=== PATIENT | female | born 1990 ===

== ENCOUNTER 2017-08-26 00:02 | Inpatient (IN) | payer BC ==
[2017-08-26] MEDS ORDERED: Ondansetron 4 MG/2 ML SDV IVPUSH PRN ×2 (00:23→00:59)
[2017-08-26] MEDS ORDERED: Sodium Chloride 0.9% 10 ML Syringe FLUSH PRN (00:23)
[2017-08-26] MEDS ORDERED: Nalbuphine 20 MG/1 ML Amp IVPUSH PRN (00:23)
[2017-08-26] MEDS ORDERED: Oxytocin/Lactated Ringers 10 UNIT/1,000 ML BAG IV SCH ×2 (00:30)
[2017-08-26] MEDS: Lactated Ringers 1,000 ML IV SCH ×2 (00:30→02:15)
[2017-08-26] MEDS ORDERED: ePHEDrine 50 MG/ML SDV IVPUSH PRN (00:59)
[2017-08-26] MEDS ORDERED: fentaNYL 100 MCG/2 ML SDV EPIDUR PRN (00:59)
[2017-08-26] MEDS ORDERED: Bupivacaine/fentaNYL/NS 100 ML Bag EPIDUR SCH (01:00)
--- NOTE | 2017-08-26 01:02 | PCM.PREANE ---
Preanesthetic Assessment - Anesthesia/Transfusion/Family Hx Anesthesia History: Prior Anesthesia Without Reaction Family History of Anesthesia Reaction: No Transfusion History: No Prior Transfusion(s) Intubation History: Unknown - Review of Systems General: No Symptoms Pulmonary: No Symptoms Cardiovascular: No Symptoms Gastrointestinal: No Symptoms Neurological: No Symptoms - Physical Assessment NPO Status Date: 08/25/17 NPO Status Time: 18:00 Pulse: 91 O2 Sat by Pulse Oximetry: 99 Respiratory Rate: 18 Blood Pressure: 138/86 Temperature: 37.1 C Height: 1.7 m Weight: 79.832 kg ASA Class: 2 Mental Status: Alert & Oriented x3 Airway Class: Mallampati = 2 Dentition: Reports: Normal Dentition, Caries Thyro-Mental Finger Breadths: 3 Mouth Opening Finger Breadths: 3 ROM/Head Extension: Full Lungs: Clear to Auscultation, Normal Respiratory Effort Cardiovascular: Regular Rate, Regular Rhythm, No Murmurs - Lab Values: Laboratory Last Values WBC 15.22 K/mm3 (3.98-10.04) H 08/26/17 00:23 RBC 4.03 M/mm3 (3.98-5.22) 08/26/17 00:23 Hgb 11.2 gm/L (11.2-15.7) 08/26/17 00:23 Hct 34.3 % (34.1-44.9) 08/26/17 00:23 MCV 85.1 fl (79.4-94.8) 08/26/17 00:23 MCH 27.8 pg (25.6-32.2) 08/26/17 00:23 MCHC 32.7 g/dl (32.2-35.5) 08/26/17 00:23 RDW Std Deviation 43.1 fL (36.4-46.3) 08/26/17 00:23 Plt Count 254 K/mm3 (182-369) 08/26/17 00:23 MPV 8.8 fl (9.4-12.3) L 08/26/17 00:23 Neut % (Auto) 71.7 % (34.0-71.1) H 08/26/17 00:23 Lymph % (Auto) 17.1 % (19.3-51.7) L 08/26/17 00:23 [place] % (Auto) 9.4 % (4.7-12.5) 08/26/17 00:23 Eos % (Auto) 1.1 (0.7-5.8) 08/26/17 00:23 Baso % (Auto) 0.3 % (0.1-1.2) 08/26/17 00:23 Neut # (Auto) 10.92 K/mm3 (1.56-6.13) H 08/26/17 00:23 Lymph # (Auto) 2.60 K/mm3 (1.18-3.74) 08/26/17 00:23 [place] # (Auto) 1.43 K/mm3 (0.24-0.36) H 08/26/17 00:23 Eos # (Auto) 0.17 K/mm3 (0.04-0.36) 08/26/17 00:23 Baso # (Auto) 0.04 K/mm3 (0.01-0.08) 08/26/17 00:23 Above labs reviewed and noted and within acceptable ranges to proceed with epidural. - Allergies Allergies/Adverse Reactions: Allergies Allergy/AdvReac Type Severity Reaction Status Date / Time No Known Allergies Allergy Verified 08/26/17 00:22 - Anesthesia Plan Pre-Op Medication Ordered: None - Acknowledgements Anesthesia Type Planned: Epidural Pt an Appropriate Candidate for the Planned Anesthesia: Yes Alternatives and Risks of Anesthesia Discussed w Pt/Guardian: Yes Pt/Guardian Understands and Agrees with Anesthesia Plan: Yes PreAnesthesia Questionnaire - Past Health History Medical/Surgical History: Denies Medical/Surgical History HEENT History: Reports: None Gastrointestinal History: Reports: None 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: - Past Surgical History HEENT Surgical History: Reports: Oral Surgery GI Surgical History: Reports: Appendectomy - SUBSTANCE USE Smoking Status *Q: Never Smoker Tobacco Use Within Last Twelve Months: No Second Hand Smoke Exposure: No Days Per Week of Alcohol Use: 0 Recreational Drug Use History: No - HOME MEDS Home Medications: Home Meds Ibuprofen [IJD: Ibuprofen] 600 mg PO Q4H PRN #30 tablet 12/15/15 [Rx] Vit W-Ca,Fe,FA(<1 mg) [ Vitamins] 1 each PO DAILY #100 tablet 12/15/15 [Rx] - CURRENT (IN HOUSE) MEDS Current Meds: Current Medications Lactated Ringer's (Ringers, Lactated) 1,000 mls @ 100 mls/hr IV ASDIRECTED FREDDY Oxytocin/Lactated Ringer's (Pitocin In Lr 10 Units/1,000 Ml) 10 unit in 1,000 mls @ 12 mls/hr IV TITRATE FREDDY; 2 MUNITS/MIN PRN Reason: Protocol Oxytocin/Lactated Ringer's (Pitocin In Lr 10 Units/1,000 Ml) 10 unit in 1,000 mls @ 500 mls/hr IV .CONTINUOUS FREDDY Nalbuphine HCl (Nubain) 10 mg IVPUSH Q2H PRN PRN Reason: Pain (moderate 4-6) Ondansetron HCl (Zofran) 4 mg IVPUSH Q4H PRN PRN Reason: Nausea/Vomiting Sodium Chloride (Saline Flush) 10 ml FLUSH ASDIRECTED PRN PRN Reason: Keep Vein Open
--- NOTE | 2017-08-26 01:13 | PCM.LDHP ---
L&D History of Present Illness - General Date of Service: 08/26/17 Admit Problem/Dx: Patient Status Order with Admit Dx/Problem 08/26/17 00:23 Patient Status [ADT] Routine Admission Diagnosis/Problem Admission Diagnosis/Problem 08/26/17 01:02 38-1/7 week intrauterine , active labor, advanced cervical dilation Source of Information: Patient History Limitations: Reports: No Limitations - History of Present Illness Introduction:: Early on the a.m. of 3 1000 in active labor with advanced cervical dilation to 6 cm. An HENOK of 09/08/2017 based upon a certain last menstrual period which started 12/02/2016 and was supported by 2 ultrasounds done on 02/25/2017 and 2016. She reports contractions started in the evening of 08/25/2017 and gradually progressed. She is not leaking any fluid. Baby's been active. On evaluation in labor and delivery her cervix is 6 cm, contractions are occurring hearing every 3-5 minutes and are moderate to strong in intensity. heart tones are reassuring. history: Patient is a 3 para 06/28/01. Her first ended at 35 weeks gestational age on 05/20/2013 after 8 hours in labor with a vaginal delivery after induction done for HELLP syndrome. This child's name is Stefany. A second delivered on 12/13/2015-male at 38-5/7 weeks gestational age-6 lbs. 9 oz.normal spontaneous vaginal deliverychild's name is Yaakov Lopez. course was relatively unremarkable. Patient's first evaluation was on 02/25/2017 at 12-1/7 weeks gestational age. Ultrasound at that time was consistent with her LMP dating. Weight gain during the course of the was from pregravid weight of 138.8 to a final weight of 169 for 31 pound gain. Her vital signs remained stable throughout the course. No signs of preeclampsia occurred. Fundal height growth has been appropriate. Patient plans to breast-feed. She declined genetic evaluation. Group B strep screen is negative. Patient is desiring an epidural in labor. T dap was administered on 07/14/2017. Rubella titer done at first visit showed immunity to rubella. Laboratory testing: Blood is A+ with negative and by screen. First hemoglobin is 14.7 and platelets were 315,000. She is rubella immune. RPR is nonreactive. Her in culture was negative. HIV and hepatitis B surface antigen were both negative. Patient declined chlamydia and gonorrhea assays. Second trimester testing showed a hemoglobin of 11.8 g/dL which time patient was advised to start on iron. Her platelets are 306,000. Her diabetic screening test was normal at 105. Group B strep screen was negative. Allergies: none Medications: vitamins Past medical history: 1. Normal spontaneous vaginal delivery 2 2. Severe preeclampsia insistent with HELLP syndrome with first quiring induction of labor Past surgical history: 1. Appendectomy 2005 Family history: Mother and father are alive but both have a history of depression and anxiety and on medications. One brother is alive with history of asthma. Maternal grandmother is secondary to: Cancer. Maternal grandfather secondary to COPD. Paternal grandmother is alive but suffers from COPD. Paternal grandfather is alive but has arthritis. No bleeding , clotting, or anesthesia problems associated with . Social history: Patient is , lives in [place]. 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 She does not use any significant amounts of alcohol, drugs or tobacco. Review of systems: In general patient has no concerns other than contractions at this time which are moderate to severe. End: Negative Cardiovascular: No chest pain or exercise intolerance Respiratory: No infectious symptoms or shortness of breath. Nuclear Breasts: Changes associated with . Patient desires to breast-feed GI: Negative : Increase in fundal height consistent with term Musculoskeletal: No significant edema noted Neurological: Negative Physical exam: General the patient is a well-developed, well-nourished, pleasant female in moderate distress secondary to labor pains. Her blood pressure on last dilation clinic was 118/64. Weight was 169 pounds. heart rate was 144. Pregravid weight was 138.8. Height at first visit was 5 feet 7 inches. Body mass index at that time was 21.1. Skin is warm and dry without lesions HEENT, neck and back within normal limits Lungs are clear with good breath sounds in all lung butler. Cardiovascular exam shows regular rate and rhythm without murmurs. Breast exam is deferred having been done at first visit and found to be normal Abdomen is protuberant Kamila with last fundal height in clinic at 37+ centimeters. Baby in vertex presentation by [place] nurse. Cervical exam per nurse is 6 and risks, near 100% effaced, bag sim, anterior. Extremities and neurological exam are grossly within normal limits. 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: - Past Surgical History HEENT Surgical History: Reports: Oral Surgery GI Surgical History: Reports: Appendectomy Social & Family History - Family History Family Medical History: Noncontributory - Tobacco Use Smoking Status *Q: Never Smoker Second Hand Smoke Exposure: No - Alcohol Use Days Per Week of Alcohol Use: 0 - Recreational Drug Use Recreational Drug Use: No H&P Review of Systems - Review of Systems: Review Of Systems: See Below L&D Exam - Exam Exam: See Below - Patient Data Lab Results Last 24 hrs: Laboratory Results - last 24 hr 08/26/17 Range/Units 00:23 WBC 15.22 H (3.98-10.04) K/mm3 RBC 4.03 (3.98-5.22) M/mm3 Hgb 11.2 (11.2-15.7) gm/L Hct 34.3 (34.1-44.9) % MCV 85.1 (79.4-94.8) fl MCH 27.8 (25.6-32.2) pg MCHC 32.7 (32.2-35.5) g/dl RDW Std Deviation 43.1 (36.4-46.3) fL Plt Count 254 (182-369) K/mm3 MPV 8.8 L (9.4-12.3) fl Neut % (Auto) 71.7 H (34.0-71.1) % Lymph % (Auto) 17.1 L (19.3-51.7) % [place] % (Auto) 9.4 (4.7-12.5) % Eos % (Auto) 1.1 (0.7-5.8) Baso % (Auto) 0.3 (0.1-1.2) % Neut # (Auto) 10.92 H (1.56-6.13) K/mm3 Lymph # (Auto) 2.60 (1.18-3.74) K/mm3 [place] # (Auto) 1.43 H (0.24-0.36) K/mm3 Eos # (Auto) 0.17 (0.04-0.36) K/mm3 Baso # (Auto) 0.04 (0.01-0.08) K/mm3 Result Diagrams: 08/26/17 00:23 Problem List Initiated/Reviewed/Updated: Yes Orders Last 24hrs: Active Orders 24 hr Category Date Time Status Patient Status [ADT] Routine ADT 08/26/17 00:23 Active Activity as Tolerated [RC] PFP Care 08/26/17 00:23 Active Communication Order [RC] ASDIRECTED Care 08/26/17 00:23 Active Heart Tones [RC] ASDIRECTED Care 08/26/17 00:23 Active Notify Provider [RC] ASDIRECTED Care 08/26/17 00:59 Active Notify Provider [RC] PFP Care 08/26/17 00:23 Active Notify Provider [RC] PRN Care 08/26/17 00:23 Active Oxygen Therapy [RC] ASDIRECTED Care 08/26/17 00:59 Active Peripheral IV Care [RC] . DIRECTED Care 08/26/17 00:23 Active Pulse Oximetry [RC] ASDIRECTED Care 08/26/17 00:59 Active Vital Signs [RC] PER UNIT ROUTINE Care 08/26/17 00:23 Active Regular Diet [DIET] Diet 08/26/17 Breakfast Active Bupivacaine/fentaNYL/NS [fentaNYL/Bupivacaine/NS 2 MCG- Med 08/26/17 01:00 Ordered 0.125% 100 ML] 100 ml EPIDUR ASDIRECTED Lactated Ringers [Ringers, Lactated] 1,000 ml Med 08/26/17 00:30 Active IV ASDIRECTED Nalbuphine [Nubain] Med 03/01/18 00:23 Active 10 mg IVPUSH Q2H PRN Ondansetron [Zofran] Med 08/26/17 00:59 Ordered 4 mg IVPUSH ONETIME PRN Ondansetron [Zofran] Med 08/26/17 00:23 Active 4 mg IVPUSH Q4H PRN Oxytocin/Lactated Ringers [Pitocin in LR 10 Units/1,000 Med 08/26/17 00:30 Active ML] 10 unit in 1,000 ml IV .CONTINUOUS Oxytocin/Lactated Ringers [Pitocin in LR 10 Units/1,000 Med 08/26/17 00:30 Active ML] 10 unit in 1,000 ml IV TITRATE Sodium Chloride 0.9% [Saline Flush] Med 08/26/17 00:23 Active 10 ml FLUSH ASDIRECTED PRN ePHEDrine [ePHEDrine Sulfate] Med 08/26/17 00:59 Ordered 5 mg IVPUSH ASDIRECTED PRN fentaNYL [Sublimaze] Med 08/26/17 00:59 Ordered 100 mcg EPIDUR Q3H PRN Electronic Heart Tones Ext w TOCO [WOMSER] Oth 08/26/17 00:23 Ordered Routine Electronic Heart Tones Internal [WOMSER] Per Unit Oth 08/26/17 00:23 Ordered Routine Peripheral IV Insertion Adult [OM.PC] Routine Oth 08/26/17 00:23 Ordered Resuscitation Status Routine Resus Stat 08/26/17 00:23 Ordered Medication Orders Ephedrine Sulfate (Ephedrine Sulfate) 5 mg IVPUSH ASDIRECTED PRN PRN Reason: Hypotension Fentanyl (Sublimaze) 100 mcg EPIDUR Q3H PRN PRN Reason: Pain Fentanyl/Bupivacaine HCl (Fentanyl/Bupivacaine/Ns 2 Mcg-0.125% 100 Ml) 100 ml EPIDUR ASDIRECTED FREDDY Lactated Ringer's (Ringers, Lactated) 1,000 mls @ 100 mls/hr IV ASDIRECTED FREDDY Oxytocin/Lactated Ringer's (Pitocin In Lr 10 Units/1,000 Ml) 10 unit in 1,000 mls @ 12 mls/hr IV TITRATE FREDDY; 2 MUNITS/MIN PRN Reason: Protocol Oxytocin/Lactated Ringer's (Pitocin In Lr 10 Units/1,000 Ml) 10 unit in 1,000 mls @ 500 mls/hr IV .CONTINUOUS FREDDY Nalbuphine HCl (Nubain) 10 mg IVPUSH Q2H PRN PRN Reason: Pain (moderate 4-6) Ondansetron HCl (Zofran) 4 mg IVPUSH Q4H PRN PRN Reason: Nausea/Vomiting Ondansetron HCl (Zofran) 4 mg IVPUSH ONETIME PRN PRN Reason: Nausea/Vomiting Sodium Chloride (Saline Flush) 10 ml FLUSH ASDIRECTED PRN PRN Reason: Keep Vein Open Assessment/Plan Comment:: Assessment: 1. 38-17 week intrauterine , active labor, advanced cervical dilation 2. Risk factors for the include history of HELLP syndrome with first . Patient has no evidence of preeclampsia with this 3. Patient plans to breast-feed 4. The patient is interested in an epidural for analgesia in labor 5. Group B strep screen is negative 6. Rubella titer is immune. Plan: 1. Anticipate normal spontaneous vaginal delivery 2. Epidural when necessary for patient 3. Support nursing decision
--- NOTE | 2017-08-26 03:45 | PCM.SN ---
- Free Text/Narrative Note: Whitney is a 27-year-old now 3 para 2103 white female admitted at 30 8/7 weeks gestational age with active labor and advanced cervical dilation. She rapidly progressed to complete cervical dilation by approximately 0315 hrs. She pushed for approximately 3 contractions and delivered a viable, andrade, female infant at 0325 hrs. The baby had Apgars of 8 and 9, a weight of 2270 g ( 6 pounds 1.7 ounces) and was delivered in a left occiput anterior position. Baby was placed on mom's abdomen, nose and mouth were bulb suctioned and cord was clamped 2 after allowing the cord to stop pulsating. The cord was cut by the baby's father. Pitocin was started IV to facilitate increase in uterine tone and decreased likelihood of uterine bleeding. The perineum was noted be intact and no suturing was necessary. The placenta delivered at 0332 hrs. In a [place] presentation. It appeared intact and complete and was discarded per patient desire. Vocal cord had 3 vessels. Patient nursed the baby after delivery. As the blood loss was 100 mL. Condition: Good
[2017-08-26] MEDS ORDERED: Acetaminophen 325 MG Tab PO PRN (04:00)
[2017-08-26] MEDS ORDERED: Witch Hazel Medicated Pads 100/Jar TOP PRN (04:00)
[2017-08-26] MEDS ORDERED: Lanolin 100% Cream 7 GM Tube TOP PRN (04:00)
[2017-08-26] MEDS ORDERED: Benzocaine/Menthol 20%-0.5% Spray 56 GM Canister TOP PRN (04:00)
[2017-08-26] MEDS ORDERED: Docusate Sodium 100 MG Cap PO PRN (04:00)
[2017-08-26] MEDS: Ibuprofen 600 MG Tab PO PRN ×4 (08:14→20:59)
[2017-08-26] MEDS ORDERED: Prenatal Multivitamin with Calcium/Folic Acid/Iron Tab PO SCH (09:00)
[2017-08-26] MEDS ORDERED: Bupivacaine 0.25% 10 ML SDV ONE (22:22)
[2017-08-27 00:16] VITALS: BP 110/56
[2017-08-27] MEDS: Ibuprofen 600 MG Tab PO PRN ×2 (02:11→07:16)
--- NOTE | 2017-08-27 08:06 | PCM48HPAN ---
Post Anesthesia Note - EVALUATION WITHIN 48HRS OF ANESTHETIC Vital Signs in Normal Range: Yes Patient Participated in Evaluation: Yes Respiratory Function Stable: Yes Airway Patent: Yes Cardiovascular Function Stable: Yes Hydration Status Stable: Yes Pain Control Satisfactory: Yes Nausea and Vomiting Control Satisfactory: Yes Mental Status Recovered: Yes Pulse Rate: 51 Resp Rate: 16 Temperature: 36.7 C Blood Pressure: 110/56 - COMMENTS/OBSERVATIONS Free Text/Narrative:: no anesthesia complications noted
--- NOTE | 2017-08-27 09:17 | PCM.DCSUM1 ---
Discharge Summary - Hospital Course Free Text/Narrative:: [facility], [place], operated by [facility] Provider Simple Note Patient Name: WHITNEY ELAINE Date of : 88 Patient Status: Inpatient Attending Provider: Chano Rosas Date: 08/26/17 03:41 Initialization Date: 08/26/17 03:41 - Free Text/Narrative Note: Whitney is a 27-year-old now 3 para 2103 white female admitted at 30 8/7 weeks gestational age with active labor and advanced cervical dilation. She rapidly progressed to complete cervical dilation by approximately 0315 hrs. She pushed for approximately 3 contractions and delivered a viable, andrade, female infant at 0325 hrs. The baby had Apgars of 8 and 9, a weight of 2270 g ( 6 pounds 1.7 ounces) and was delivered in a left occiput anterior position. Baby was placed on mom's abdomen, nose and mouth were bulb suctioned and cord was clamped 2 after allowing the cord to stop pulsating. The cord was cut by the baby's father. Pitocin was started IV to facilitate increase in uterine tone and decreased likelihood of uterine bleeding. The perineum was noted be intact and no suturing was necessary. The placenta delivered at 0332 hrs. In a [place] presentation. It appeared intact and complete and was discarded per patient desire. Vocal cord had 3 vessels. Patient nursed the baby after delivery. As the blood loss was 100 mL. Condition: Good HPI Initial Comments: [facility], [place], operated by [facility] Provider Simple Note Patient Name: WHITNEY ELAINE Date of : 88 Patient Status: Inpatient Attending Provider: Chano Rosas Date: 08/26/17 03:41 Initialization Date: 08/26/17 03:41 - Free Text/Narrative Note: Whitney is a 27-year-old now 3 para 2103 white female admitted at 30 8/7 weeks gestational age with active labor and advanced cervical dilation. She rapidly progressed to complete cervical dilation by approximately 0315 hrs. She pushed for approximately 3 contractions and delivered a viable, andrade, female infant at 0325 hrs. The baby had Apgars of 8 and 9, a weight of 2270 g ( 6 pounds 1.7 ounces) and was delivered in a left occiput anterior position. Baby was placed on mom's abdomen, nose and mouth were bulb suctioned and cord was clamped 2 after allowing the cord to stop pulsating. The cord was cut by the baby's father. Pitocin was started IV to facilitate increase in uterine tone and decreased likelihood of uterine bleeding. The perineum was noted be intact and no suturing was necessary. The placenta delivered at 0332 hrs. In a [place] presentation. It appeared intact and complete and was discarded per patient desire. Vocal cord had 3 vessels. Patient nursed the baby after delivery. As the blood loss was 100 mL. Condition: Good Brief History: [facility], [place], operated by [facility] . Provider Simple Note. Patient Name : WHITNEY ELAINEMedical Record Number: [id number]. Date of : Patient Status: Inpatient. Attending Provider: Chano Rosas FAccount Number : [id number]. Date: 08/26/17 03:41Initialization Date: 08/26/17 03:41. - Free Text/Narrative. Note: Whitney is a 27-year-old now 3 para 2103 white female admitted at 30 8/7 weeks gestational age with active labor and advanced cervical dilation. She rapidly progressed to complete cervical dilation by approximately 0315 hrs. She pushed for approximately 3 contractions and delivered a viable, andrade, female infant at 0325 hrs. The baby had Apgars of 8 and 9, a weight of 2270 g (6 pounds 1.7 ounces) and was delivered in a left occiput anterior position. Baby was placed on mom's abdomen, nose and mouth were bulb suctioned and cord was clamped 2 after allowing the cord to stop pulsating. The cord was cut by the baby's father. Pitocin was started IV to facilitate increase in uterine tone and decreased likelihood of uterine bleeding. The perineum was noted be intact and no suturing was necessary. The placenta delivered at 0332 hrs. In a [place] presentation. It appeared intact and complete and was discarded per patient desire. Vocal cord had 3 vessels. Patient nursed the baby after delivery. As the blood loss was 100 mL. Condition : Good - Discharge Data Discharge Date: 08/27/17 Discharge Disposition: Home, Self-Care 01 Condition: Good - Discharge Diagnosis/Problem(s) (1) Normal delivery at term SNOMED Code(s): 28235085 ICD Code: O80 - ENCOUNTER FOR FULL-TERM UNCOMPLICATED DELIVERY Status: Acute Current Visit: Yes - Patient Summary/Data Complications: None Consults: None Hospital Course: Uneventful - Patient Instructions Diet: Regular Diet as Tolerated Driving: Do Not Drive (48 hours) Showering/Bathing: May Shower Notify Provider of: Fever, Increased Pain, Swelling and Redness, Drainage, Nausea and/or Vomiting - Discharge Plan Home Medications: Home Meds Ibuprofen [IJD: Ibuprofen] 600 mg PO Q4H PRN #30 tablet 12/15/15 [Rx] Vit W-Ca,Fe,FA(<1 mg) [ Vitamins] 1 each PO DAILY #100 tablet 12/15/15 [Rx] Acetaminophen [Tylenol] 650 mg PO Q4H PRN tablet 08/27/17 [Rx] Benzocaine/Menthol [Dermoplast Pain Relief [place]] 1 spray TOP ASDIRECTED PRN canister 08/27/17 [Rx] Docusate Sodium [Colace] 100 mg PO BID PRN cap 08/27/17 [Rx] Lanolin [Lansinoh HPA] 1 applic TOP ASDIRECTED PRN tube 08/27/17 [Rx] Vit with Ca/FA/Iron [ Plus Iron] 1 each PO DAILY tablet [Rx] Referrals: Chano Rosas MD [Primary Care Provider] - (2 weeks) - Discharge Summary/Plan Comment DC Time >30 min.: No - Patient Data Vitals - Most Recent: Last Vital Signs Temp 98.1 F 08/27/17 08:06 Pulse 51 L 08/27/17 08:06 Resp 16 08/27/17 08:06 BP 110/56 L 08/27/17 08:06 Pulse Ox 95 08/27/17 00:12 Weight - Most Recent: 176 lb I&O - Last 24 hours: Intake & Output 08/26/17 08/27/17 08/27/17 22:59 06:59 14:59 Intake Total 0 Balance 0 Lab Results - Last 24 hrs: Laboratory Results - last 24 hr 08/27/17 Range/Units 06:20 WBC 12.43 H (3.98-10.04) K/mm3 RBC 3.82 L (3.98-5.22) M/mm3 Hgb 10.6 L (11.2-15.7) gm/L Hct 32.9 L (34.1-44.9) % MCV 86.1 (79.4-94.8) fl MCH 27.7 (25.6-32.2) pg MCHC 32.2 (32.2-35.5) g/dl RDW Std Deviation 44.2 (36.4-46.3) fL Plt Count 222 (182-369) K/mm3 MPV 9.1 L (9.4-12.3) fl Med Orders - Current: Current Medications Acetaminophen (Tylenol) 650 mg PO Q4H PRN PRN Reason: mild pain or fever Benzocaine/Menthol (Dermoplast Pain Relief [place]) 0 gm TOP ASDIRECTED PRN PRN Reason: Perineal Comfort Measure Docusate Sodium (Colace) 100 mg PO BID PRN PRN Reason: Constipation Emollient Ointment (Lansinoh Hpa) 0 gm TOP ASDIRECTED PRN PRN Reason: Sore Nipples Ibuprofen (Motrin) 600 mg PO Q4H PRN PRN Reason: Mild pain or fever Last Admin: 08/27/17 07:16 Dose: 600 mg Prenat Multivit/[place]/Iron/Folic Ac ( Plus Iron) 1 each PO DAILY [facility] Last Admin: 08/26/17 08:14 Dose: 1 each Witch Savita (Tucks) 1 pad TOP ASDIRECTED PRN PRN Reason: Hemorrhoid pain Discontinued Medications Bupivacaine HCl (Sensorcaine-Mpf 0.25%) 10 ml .ROUTE .STK-MED ONE Stop: 08/26/17 22:23 Ephedrine Sulfate (Ephedrine Sulfate) 5 mg IVPUSH ASDIRECTED PRN PRN Reason: Hypotension Fentanyl (Sublimaze) 100 mcg EPIDUR Q3H PRN PRN Reason: Pain Last Admin: 08/26/17 01:17 Dose: 100 mcg Fentanyl/Bupivacaine HCl (Fentanyl/Bupivacaine/Ns 2 Mcg-0.125% 100 Ml) 100 ml EPIDUR ASDIRECTED [facility] Last Admin: 08/26/17 01:17 Dose: 100 ml Lactated Ringer's (Ringers, Lactated) 1,000 mls @ 100 mls/hr IV ASDIRECTED FREDDY Last Admin: 08/26/17 02:15 Dose: 100 mls/hr Oxytocin/Lactated Ringer's (Pitocin In Lr 10 Units/1,000 Ml) 10 unit in 1,000 mls @ 12 mls/hr IV TITRATE FREDDY; 2 MUNITS/MIN PRN Reason: Protocol Oxytocin/Lactated Ringer's (Pitocin In Lr 10 Units/1,000 Ml) 10 unit in 1,000 mls @ 500 mls/hr IV .CONTINUOUS FREDDY Last Admin: 08/26/17 03:58 Dose: 500 mls/hr Nalbuphine HCl (Nubain) 10 mg IVPUSH Q2H PRN PRN Reason: Pain (moderate 4-6) Ondansetron HCl (Zofran) 4 mg IVPUSH Q4H PRN PRN Reason: Nausea/Vomiting Ondansetron HCl (Zofran) 4 mg IVPUSH ONETIME PRN PRN Reason: Nausea/Vomiting Sodium Chloride (Saline Flush) 10 ml FLUSH ASDIRECTED PRN PRN Reason: Keep Vein Open *Q Meaningful Use (DIS) - VTE *Q VTE Criteria *Q: - Stroke *Q Stroke Criteria *Q: - AMI *Q AMI Criteria *Q:
== END 2017-08-27 09:49 | disposition home or self-care (01) | DRG 560 ==
LOC: JD.OBCHECK 00:02 → JD.OB 00:05 → JD.OBCHECK 00:23 → JD.OB 00:29 → OBSVTOIN 03:25 → JD.OB 03:39
PROVIDERS: ADMIT Obstetrics & Gynecology; ATTEND Obstetrics & Gynecology
PROC: 10E0XZZ Delivery of Products of Conception, External Approach (ICD-10-PCS; principal; 2017-08-26)
PROC: 00HU33Z Insertion of Infusion Device into Spinal Canal, Percutaneous Approach (ICD-10-PCS; 2017-08-26)
PROC: 3E0R3BZ Introduction of Anesthetic Agent into Spinal Canal, Percutaneous Approach (ICD-10-PCS; 2017-08-26)
DX: O80 Encounter for full-term uncomplicated delivery (principal); Z3A.38 38 weeks gestation of pregnancy; Z37.0 Single live birth
CPT/HCPCS: 36415; 51701; 59409; 85025; 85027; A9270-GY; J2590; J3010; J7120